=== PATIENT | male | born 1990 | race Caucasian/White ===

== ENCOUNTER 2018-07-10 05:43 | Emergency (ER) | payer OTHER ==
[~2018-07-10] VITALS: Ht 190.5 cm; Wt 59.8 kg
[2018-07-10] MEDS ORDERED: KETOROLAC 60MG/2ML VIAL IM ONE (08:00)
[2018-07-10 09:35] VITALS: BP 112/71
== END 2018-07-10 09:38 | disposition home or self-care (01) ==
LOC: ER 05:43
DX: S09.8XXA Other specified injuries of head, initial encounter (principal); F17.200 Nicotine dependence, unspecified, uncomplicated; X50.0XXA Overexertion from strenuous movement or load, initial encounter; Y93.89 Activity, other specified; Y92.89 Other specified places as the place of occurrence of the external cause; Y99.8 Other external cause status
CPT/HCPCS: 70450; 93005; 96372; 99284; J1885